=== PATIENT | female | born 1945 | race Caucasian/White ===

== ENCOUNTER 2022-06-06 08:59 | Inpatient (IN) | payer OTHER ==
[~2022-06-06] VITALS: Ht 165.1 cm; Wt 92.5 kg
[2022-06-06] VITALS (34 sets, daily range): BP systolic 88–171; BP diastolic 36–160
[2022-06-06] MEDS ORDERED: SODIUM CHLORIDE 0.9% 1000ML 1,000 ML IV STA ×3 (09:07→10:57)
[2022-06-06 10:15] LABS: INR 1.23; PARTIAL THROMBOPLASTIN TIME 23.4 seconds (23.8-35.5); PROTHROMBIN TIME 15.7 seconds (11.9-14.5)
[2022-06-06 10:20] LABS: BASOPHILS % 0.2 % (0.0-1.0); EOSINOPHILS # (AUTO) 0.1 (0.0-0.4); EOSINOPHILS % 2.5 % (0.0-6.0); LYMPHOCYTES % 21.7 % (18.0-39.1); MEAN CORPUSCULAR HEMOGLOBIN 33.7 pg (28-32); MEAN CORPUSCULAR HGB CONC 31.6 g/dL (31-35); MEAN CORPUSCULAR VOLUME 106.6 fL (81-99); MONOCYTES # (AUTO) 0.7 (0.2-0.8); MONOCYTES % 16.1 % (4.4-11.3); NEUTROPHILS # (AUTO) 2.4 (2.1-6.9); NEUTROPHILS % 53.6 % (38.7-80.0); RED BLOOD COUNT 1.81 x10e6/uL (3.6-5.1); RED CELL DISTRIBUTION WIDTH 19.2 % (11.7-14.4)
[2022-06-06 10:22] LABS: HEMATOCRIT 19.3 % (34.2-44.1); HEMOGLOBIN 6.1 g/dL (12.0-16.0); PLATELET COUNT 71 x10e3/uL (140-360)
[2022-06-06 10:27] LABS: ALBUMIN 2.2 g/dL (3.5-5.0); ALBUMIN/GLOBULIN RATIO 0.4 (0.8-2.0); CALCIUM 8.7 mg/dL (8.4-10.2); CREATININE, SERUM 1.75 mg/dL (0.57-1.11); MAGNESIUM 2.1 MG/DL (1.3-2.1)
[2022-06-06 10:58] LABS: CREATINE KINASE MB 0.9 ng/mL (0-5.0); THYROID STIMULATING HORMONE 0.33 uIU/mL (0.350-4.940)
[2022-06-06 10:59] LABS: CLARITY,URINE SL CLOUDY (CLEAR); COLOR,URINE YELLOW (YELLOW); LEUKOCYTE ESTERASE ,URINE NEGATIVE (NEGATIVE); NITRITE,URINE POSITIVE (NEGATIVE)
[2022-06-06 11:00] LABS: KETONES,URINE TRACE (NEGATIVE); PROTEIN,URINE DIPSTICK TRACE (NEGATIVE); URINE UROBILINOGEN 0.2 mg/dL (0.2 - 1)
[2022-06-06] MEDS ORDERED: Vancomycin IV 1 GM in SODIUM CHLORIDE 0.9% 250ML 250 ML IV ONE (11:00)
[2022-06-06 11:12] LABS: BACTERIA,URINE MANY /HPF; EPITHELIAL CELLS,URINE RARE /LPF; RBC,URINE 0-5 /HPF (0-5); WBC,URINE (MAN) 0-5 /HPF (0-5)
[2022-06-06] MEDS: SODIUM CHLORIDE 0.9% 1000ML 1,000 ML IV SCH ×2 (11:15→21:15)
[2022-06-06 12:04] LABS: BAND NEUTROPHILS % (MANUAL) 5 %; BLAST CELLS % MANUAL 10; LYMPHOCYTES % (MANUAL) 24 % (19-48); MONOCYTES % (MANUAL) 4 % (3.4-9.0); MYELOCYTES % (MANUAL) 1 % (0-0); NEUTROPHILS % (MANUAL) 53 % (40-74)
[2022-06-06 12:05] LABS: ANISOCYTOSIS SLIGHT; PLATELET ESTIMATE MODERATELY DECREASED; PLATELET MORPHOLOGY COMMENT NORMAL; RBC MORPHOLOGY COMMENT NORMAL
[2022-06-06] MEDS ORDERED: NOREPINEPHRINE 8 MG/D5W 250 ML 250 ML ONE (12:11)
[2022-06-06] MEDS ORDERED: DEXTROSE 50% SYRINGE 50 ML IV PRN (12:15)
[2022-06-06] MEDS: NOREPINEPHRINE 8 MG/D5W 250 ML 250 ML IV SCH (12:30)
[2022-06-06] MEDS ORDERED: SODIUM CHLORIDE 0.9% 250ML 250 ML ONE ×3 (12:52→21:09)
[2022-06-06] MEDS ORDERED: TRIAMCINOLONE A15 G1 TOP (14:15)
[2022-06-06] MEDS ORDERED: LEVOTHYROXINE50 MCG PO (14:15)
[2022-06-06] MEDS ORDERED: SIMETHICONE80 MG PO (14:15)
[2022-06-06] MEDS ORDERED: MULTIVITAMINS1 EAC6 PO (14:15)
[2022-06-06] MEDS ORDERED: ZINC-22050 MG PO (14:15)
[2022-06-06] MEDS ORDERED: TRADJENTA5 MG PO (14:15)
[2022-06-06] MEDS ORDERED: PEPCID20 MG PO (14:15)
[2022-06-06] MEDS ORDERED: LEVOTHYROXINE112 MCG PO (14:15)
[2022-06-06] MEDS ORDERED: VITAMIN C500 MG PO (14:15)
[2022-06-06] MEDS ORDERED: BENEPROTEIN1 EACH PO (14:15)
[2022-06-06] MEDS ORDERED: JARDIANCE10 MG PO (14:15)
[2022-06-06] MEDS ORDERED: MICONAZORB AF71 GM TOP (14:17)
[2022-06-06] MEDS: INSULIN REGULAR, HUMAN 100 UNIT/1 ML SQ SCH ×2 (16:30→22:21)
[2022-06-06] MEDS ORDERED: ACETAMINOPHEN 1000 MG/100 ML IV STA (19:50)
[2022-06-07] VITALS (76 sets, daily range): BP systolic 90–153; BP diastolic 36–130
[2022-06-07] MEDS: LACTATED RINGER'S 1,000 ML INJ SCH ×4 (00:28→20:39)
[2022-06-07] MEDS: NOREPINEPHRINE 8 MG/D5W 250 ML 250 ML IV SCH (00:52)
[2022-06-07] MEDS ORDERED: DEXTROSE 50% SYRINGE 50 ML IV PRN (06:00)
[2022-06-07 06:11] LABS: BASOPHILS % 0.4 % (0.0-1.0); EOSINOPHILS # (AUTO) 0.1 (0.0-0.4); EOSINOPHILS % 1.3 % (0.0-6.0); HEMATOCRIT 23.8 % (34.2-44.1); HEMOGLOBIN 7.8 g/dL (12.0-16.0); LYMPHOCYTES % 18.7 % (18.0-39.1); MEAN CORPUSCULAR HEMOGLOBIN 31.2 pg (28-32); MEAN CORPUSCULAR HGB CONC 32.8 g/dL (31-35); MEAN CORPUSCULAR VOLUME 95.2 fL (81-99); MONOCYTES # (AUTO) 0.5 (0.2-0.8); MONOCYTES % 8.8 % (4.4-11.3); NEUTROPHILS # (AUTO) 3.7 (2.1-6.9); PLATELET COUNT 56 x10e3/uL (140-360); RED CELL DISTRIBUTION WIDTH 18.9 % (11.7-14.4)
[2022-06-07 06:34] LABS: ALBUMIN 1.8 g/dL (3.5-5.0); ALBUMIN/GLOBULIN RATIO 0.4 (0.8-2.0); ALKALINE PHOSPHATASE 42 IU/L (40-150); ANION GAP 12.6 mmol/L (8-16); BLOOD UREA NITROGEN 25 mg/dL (7-26); BUN/CREATININE RATIO 16 (6-25); CARBON DIOXIDE 19 mmol/L (22-29); CHLORIDE 107 mmol/L (98-107); CREATININE, SERUM 1.55 mg/dL (0.57-1.11); GLUCOSE 243 mg/dL (74-118); POTASSIUM 3.6 mmol/L (3.5-5.1); SODIUM 135 mmol/L (136-145)
[2022-06-07 06:35] LABS: ALANINE AMINOTRANSFERASE < 6 IU/L (0-55)
[2022-06-07 06:45] LABS: CREATINE KINASE MB 1.3 ng/mL (0-5.0)
[2022-06-07 07:20] LABS: BLAST CELLS % MANUAL 5; EOSINOPHILS % (MANUAL) 2 % (0-7); LYMPHOCYTES % (MANUAL) 17 % (19-48); METAMYELOCYTES % (MANUAL) 1 % (0-0); MONOCYTES % (MANUAL) 2 % (3.4-9.0); MYELOCYTES % (MANUAL) 2 % (0-0); NEUTROPHILS % (MANUAL) 71 % (40-74)
[2022-06-07 07:22] LABS: ANISOCYTOSIS MODERATE; OVALOCYTES FEW; PLATELET ESTIMATE MODERATELY DECREASED; PLATELET MORPHOLOGY COMMENT NORMAL; RBC MORPHOLOGY COMMENT ABNORMAL
[2022-06-07] MEDS: INSULIN REGULAR, HUMAN 100 UNIT/1 ML SQ SCH ×4 (07:48→21:43)
[2022-06-07] MEDS: MULTIVITAMINS/MINERALS TAB PO SCH (08:08)
[2022-06-07] MEDS: LEVOTHYROXINE SODIUM 112 MCG TAB PO SCH (08:08)
[2022-06-07] MEDS ORDERED: DIATRIZOATE MEGL/DIATRIZOA SOD 30 ML BTL PO ONE (13:00)
[2022-06-07] MEDS ORDERED: FUROSEMIDE INJ 10 MG/ML 4 ML VIAL IV ONE (18:00)
[2022-06-08] VITALS (54 sets, daily range): BP systolic 83–140; BP diastolic 35–97
[2022-06-08] MEDS: NOREPINEPHRINE 8 MG/D5W 250 ML 250 ML IV SCH (02:52)
[2022-06-08] MEDS: LACTATED RINGER'S 1,000 ML INJ SCH ×2 (05:39→16:47)
[2022-06-08 06:03] LABS: ALBUMIN 1.6 g/dL (3.5-5.0); ALBUMIN/GLOBULIN RATIO 0.4 (0.8-2.0); ALKALINE PHOSPHATASE 39 IU/L (40-150); ANION GAP 11.2 mmol/L (8-16); BLOOD UREA NITROGEN 20 mg/dL (7-26); BUN/CREATININE RATIO 16 (6-25); CALCIUM 7.6 mg/dL (8.4-10.2); CARBON DIOXIDE 22 mmol/L (22-29); CHLORIDE 105 mmol/L (98-107); CREATININE, SERUM 1.24 mg/dL (0.57-1.11); GLUCOSE 172 mg/dL (74-118); POTASSIUM 3.2 mmol/L (3.5-5.1); SODIUM 135 mmol/L (136-145)
[2022-06-08 06:06] LABS: ALANINE AMINOTRANSFERASE < 6 IU/L (0-55)
[2022-06-08 06:22] LABS: BASOPHILS % 0.4 % (0.0-1.0); EOSINOPHILS # (AUTO) 0.3 (0.0-0.4); EOSINOPHILS % 12.9 % (0.0-6.0); HEMOGLOBIN 7.1 g/dL (12.0-16.0); LYMPHOCYTES # (AUTO) 0.8 (1.0-3.2); LYMPHOCYTES % 30.5 % (18.0-39.1); MEAN CORPUSCULAR HEMOGLOBIN 31.4 pg (28-32); MEAN CORPUSCULAR VOLUME 95.1 fL (81-99); MONOCYTES # (AUTO) 0.4 (0.2-0.8); MONOCYTES % 14.1 % (4.4-11.3); NEUTROPHILS % 39.4 % (38.7-80.0); RED BLOOD COUNT 2.26 x10e6/uL (3.6-5.1)
[2022-06-08 06:28] LABS: PLATELET COUNT 31 x10e3/uL (140-360)
[2022-06-08 06:29] LABS: HEMATOCRIT 21.5 % (34.2-44.1)
[2022-06-08] MEDS: INSULIN REGULAR, HUMAN 100 UNIT/1 ML SQ SCH ×4 (07:30→21:30)
[2022-06-08 09:06] LABS: EOSINOPHILS % (MANUAL) 12 % (0-7); LYMPHOCYTES % (MANUAL) 38 % (19-48); NEUTROPHILS % (MANUAL) 48 % (40-74); NUCLEATED RED BLOOD CELLS 1
[2022-06-08 09:07] LABS: PLATELET ESTIMATE MARKEDLY DECREASED
[2022-06-08 09:08] LABS: ELLIPTOCYTE, RBC SLIGHT
[2022-06-08 09:09] LABS: ANISOCYTOSIS MODERATE; OVALOCYTES FEW
[2022-06-08 09:10] LABS: PLATELET MORPHOLOGY COMMENT NORMAL; RBC MORPHOLOGY COMMENT ABNORMAL
[2022-06-08 09:11] LABS: BLAST CELLS % MANUAL 1; PROMYELOCYTES % (MANUAL) 1 % (0-0)
[2022-06-08] MEDS: MULTIVITAMINS/MINERALS TAB PO SCH (09:50)
[2022-06-08] MEDS: LEVOTHYROXINE SODIUM 112 MCG TAB PO SCH (09:50)
[2022-06-08] MEDS ORDERED: POTASSIUM CHLORIDE 20MEQ/100ML 200 ML IV ONE (12:00)
[2022-06-08] MEDS ORDERED: MAGNESIUM SULFATE 2GM/50ML 100 ML IV ONE (13:00)
[2022-06-08] MEDS ORDERED: MAGNESIUM SULFATE 2GM/50ML 50 ML IV ONE (16:54)
[2022-06-09] VITALS (83 sets, daily range): BP systolic 58–158; BP diastolic 13–123
[2022-06-09 06:26] LABS: EOSINOPHILS # (AUTO) 0.2 (0.0-0.4); EOSINOPHILS % 13.8 % (0.0-6.0); LYMPHOCYTES # (AUTO) 0.8 (1.0-3.2); LYMPHOCYTES % 44.8 % (18.0-39.1); MEAN CORPUSCULAR HEMOGLOBIN 31.2 pg (28-32); MEAN CORPUSCULAR HGB CONC 32.4 g/dL (31-35); MEAN CORPUSCULAR VOLUME 96.4 fL (81-99); MONOCYTES # (AUTO) 0.2 (0.2-0.8); MONOCYTES % 13.8 % (4.4-11.3); NEUTROPHILS # (AUTO) 0.5 (2.1-6.9); NEUTROPHILS % 26.5 % (38.7-80.0); RED BLOOD COUNT 2.21 x10e6/uL (3.6-5.1); RED CELL DISTRIBUTION WIDTH 18.2 % (11.7-14.4)
[2022-06-09 06:39] LABS: ALBUMIN 1.5 g/dL (3.5-5.0); ALBUMIN/GLOBULIN RATIO 0.3 (0.8-2.0); ALKALINE PHOSPHATASE 38 IU/L (40-150); ANION GAP 11.9 mmol/L (8-16); BLOOD UREA NITROGEN 19 mg/dL (7-26); BUN/CREATININE RATIO 14 (6-25); CALCIUM 7.4 mg/dL (8.4-10.2); CARBON DIOXIDE 21 mmol/L (22-29); CHLORIDE 104 mmol/L (98-107); CREATININE, SERUM 1.37 mg/dL (0.57-1.11); GLUCOSE 124 mg/dL (74-118); POTASSIUM 3.9 mmol/L (3.5-5.1); SODIUM 133 mmol/L (136-145)
[2022-06-09 06:42] LABS: HEMATOCRIT 21.3 % (34.2-44.1); HEMOGLOBIN 6.9 g/dL (12.0-16.0); PLATELET COUNT 20 x10e3/uL (140-360)
[2022-06-09 06:43] LABS: ALANINE AMINOTRANSFERASE < 6 IU/L (0-55)
[2022-06-09 07:24] LABS: ELLIPTOCYTE, RBC SLIGHT; HYPOCHROMASIA SLIGHT; PLATELET ESTIMATE MARKEDLY DECREASED; PLATELET MORPHOLOGY COMMENT NORMAL; RBC MORPHOLOGY COMMENT ABNORMAL
[2022-06-09] MEDS: MULTIVITAMINS/MINERALS TAB PO SCH (08:25)
[2022-06-09] MEDS: LEVOTHYROXINE SODIUM 112 MCG TAB PO SCH (08:25)
[2022-06-09] MEDS: INSULIN REGULAR, HUMAN 100 UNIT/1 ML SQ SCH ×4 (08:28→21:00)
[2022-06-09] MEDS ORDERED: SODIUM CHLORIDE 0.9% 250ML 250 ML IV ONE (10:30)
[2022-06-09] MEDS: LACTATED RINGER'S 1,000 ML INJ SCH ×2 (11:53→23:22)
[2022-06-09] MEDS ORDERED: MAGNESIUM SULFATE 2GM/50ML 50 ML IV ONE (12:45)
[2022-06-09] MEDS ORDERED: FUROSEMIDE INJ 10 MG/ML 4 ML VIAL IV ONE (12:45)
[2022-06-10] VITALS (36 sets, daily range): BP systolic 90–143; BP diastolic 34–89
[2022-06-10 06:19] LABS: EOSINOPHILS # (AUTO) 0.2 (0.0-0.4); EOSINOPHILS % 14.6 % (0.0-6.0); HEMATOCRIT 29.4 % (34.2-44.1); HEMOGLOBIN 9.6 g/dL (12.0-16.0); LYMPHOCYTES % 58.5 % (18.0-39.1); MEAN CORPUSCULAR HEMOGLOBIN 30.1 pg (28-32); MEAN CORPUSCULAR HGB CONC 32.7 g/dL (31-35); MEAN CORPUSCULAR VOLUME 92.2 fL (81-99); MONOCYTES # (AUTO) 0.1 (0.2-0.8); MONOCYTES % 5.5 % (4.4-11.3); NEUTROPHILS # (AUTO) 0.3 (2.1-6.9); NEUTROPHILS % 18.4 % (38.7-80.0); PLATELET COUNT 54 x10e3/uL (140-360); RED BLOOD COUNT 3.19 x10e6/uL (3.6-5.1); RED CELL DISTRIBUTION WIDTH 17.7 % (11.7-14.4)
[2022-06-10 06:37] LABS: ANION GAP 10.4 mmol/L (8-16); CALCIUM 7.5 mg/dL (8.4-10.2); CREATININE, SERUM 1.21 mg/dL (0.57-1.11); POTASSIUM 3.4 mmol/L (3.5-5.1)
[2022-06-10 07:27] LABS: BAND NEUTROPHILS % (MANUAL) 1 %; BLAST CELLS % MANUAL 3; EOSINOPHILS % (MANUAL) 14 % (0-7); LYMPHOCYTES % (MANUAL) 61 % (19-48); NEUTROPHILS % (MANUAL) 21 % (40-74); PLATELET ESTIMATE MODERATELY DECREASED
[2022-06-10 07:28] LABS: ANISOCYTOSIS SLIGHT; HYPOCHROMASIA SLIGHT
[2022-06-10] MEDS: MULTIVITAMINS/MINERALS TAB PO SCH (08:06)
[2022-06-10] MEDS: LEVOTHYROXINE SODIUM 112 MCG TAB PO SCH (08:07)
[2022-06-10] MEDS: INSULIN REGULAR, HUMAN 100 UNIT/1 ML SQ SCH ×4 (08:09→20:21)
[2022-06-10] MEDS: LACTATED RINGER'S 1,000 ML INJ SCH ×3 (09:08→21:11)
[2022-06-10] MEDS ORDERED: FILGRASTIM-AAFI 300 MCG/0.5 ML SYRINGE SQ ONE (18:00)
[2022-06-11] VITALS (8 sets, daily range): BP systolic 112–147; BP diastolic 46–75
[2022-06-11] MEDS: INSULIN REGULAR, HUMAN 100 UNIT/1 ML SQ SCH ×4 (07:30→20:58)
[2022-06-11] MEDS: LEVOTHYROXINE SODIUM 112 MCG TAB PO SCH (07:32)
[2022-06-11 07:56] LABS: EOSINOPHILS % 0.9 % (0.0-6.0); HEMATOCRIT 28.6 % (34.2-44.1); HEMOGLOBIN 9.3 g/dL (12.0-16.0); LYMPHOCYTES # (AUTO) 1.1 (1.0-3.2); LYMPHOCYTES % 45.1 % (18.0-39.1); MEAN CORPUSCULAR HEMOGLOBIN 30.2 pg (28-32); MEAN CORPUSCULAR HGB CONC 32.5 g/dL (31-35); MEAN CORPUSCULAR VOLUME 92.9 fL (81-99); MONOCYTES # (AUTO) 0.2 (0.2-0.8); MONOCYTES % 7.7 % (4.4-11.3); NEUTROPHILS # (AUTO) 1.1 (2.1-6.9); NEUTROPHILS % 45.4 % (38.7-80.0); RED BLOOD COUNT 3.08 x10e6/uL (3.6-5.1); RED CELL DISTRIBUTION WIDTH 17.7 % (11.7-14.4)
[2022-06-11 08:12] LABS: PLATELET COUNT 41 x10e3/uL (140-360)
[2022-06-11] MEDS: LACTATED RINGER'S 1,000 ML INJ SCH ×2 (08:48→16:57)
[2022-06-11] MEDS: MULTIVITAMINS/MINERALS TAB PO SCH ×2 (08:49→09:00)
[2022-06-11 10:47] LABS: EOSINOPHILS % (MANUAL) 20 % (0-7); LYMPHOCYTES % (MANUAL) 48 % (19-48); MONOCYTES % (MANUAL) 6 % (3.4-9.0); NEUTROPHILS % (MANUAL) 22 % (40-74); PLATELET ESTIMATE MARKEDLY DECREASED; PLATELET MORPHOLOGY COMMENT NORMAL; RBC MORPHOLOGY COMMENT NORMAL
[2022-06-11] MEDS ORDERED: POTASSIUM CHLORIDE 20 MEQ TAB CR PO ONE (11:45)
[2022-06-11 18:13] LABS: BASOPHILS % 0.4 % (0.0-1.0); EOSINOPHILS % 0.8 % (0.0-6.0); HEMATOCRIT 29.5 % (34.2-44.1); HEMOGLOBIN 9.5 g/dL (12.0-16.0); LYMPHOCYTES # (AUTO) 1.3 (1.0-3.2); LYMPHOCYTES % 51.4 % (18.0-39.1); MEAN CORPUSCULAR HEMOGLOBIN 30.3 pg (28-32); MEAN CORPUSCULAR HGB CONC 32.2 g/dL (31-35); MEAN CORPUSCULAR VOLUME 93.9 fL (81-99); MONOCYTES # (AUTO) 0.2 (0.2-0.8); MONOCYTES % 7.7 % (4.4-11.3); NEUTROPHILS % 38.9 % (38.7-80.0); RED BLOOD COUNT 3.14 x10e6/uL (3.6-5.1); RED CELL DISTRIBUTION WIDTH 17.3 % (11.7-14.4)
[2022-06-11 18:18] LABS: PLATELET COUNT 37 x10e3/uL (140-360)
[2022-06-12] VITALS (8 sets, daily range): BP systolic 115–135; BP diastolic 54–80
[2022-06-12] MEDS: LACTATED RINGER'S 1,000 ML INJ SCH ×2 (04:18→17:11)
[2022-06-12] MEDS: LEVOTHYROXINE SODIUM 112 MCG TAB PO SCH (06:29)
[2022-06-12 06:58] LABS: EOSINOPHILS # (AUTO) 0.3 (0.0-0.4); EOSINOPHILS % 15.7 % (0.0-6.0); HEMATOCRIT 28.1 % (34.2-44.1); LYMPHOCYTES # (AUTO) 1.1 (1.0-3.2); LYMPHOCYTES % 57.6 % (18.0-39.1); MEAN CORPUSCULAR HEMOGLOBIN 29.9 pg (28-32); MEAN CORPUSCULAR VOLUME 93.4 fL (81-99); MONOCYTES # (AUTO) 0.2 (0.2-0.8); MONOCYTES % 7.9 % (4.4-11.3); NEUTROPHILS # (AUTO) 0.4 (2.1-6.9); NEUTROPHILS % 18.3 % (38.7-80.0); RED BLOOD COUNT 3.01 x10e6/uL (3.6-5.1); RED CELL DISTRIBUTION WIDTH 17.2 % (11.7-14.4)
[2022-06-12 07:01] LABS: PLATELET COUNT 36 x10e3/uL (140-360)
[2022-06-12 07:08] LABS: CALCIUM 7.6 mg/dL (8.4-10.2); CREATININE, SERUM 1.13 mg/dL (0.57-1.11)
[2022-06-12 07:40] LABS: BLAST CELLS % MANUAL 5; EOSINOPHILS % (MANUAL) 25 % (0-7); LYMPHOCYTES % (MANUAL) 52 % (19-48); NEUTROPHILS % (MANUAL) 18 % (40-74)
[2022-06-12 07:41] LABS: ANISOCYTOSIS SLIGHT; HYPOCHROMASIA SLIGHT; PLATELET ESTIMATE MARKEDLY DECREASED; PLATELET MORPHOLOGY COMMENT NORMAL; RBC MORPHOLOGY COMMENT ABNORMAL
[2022-06-12] MEDS: INSULIN REGULAR, HUMAN 100 UNIT/1 ML SQ SCH ×4 (08:00→21:45)
[2022-06-12] MEDS ORDERED: PIPERACILLIN/TAZOBACTAM SOD 2.25 GM VIAL ONE (08:15)
[2022-06-12] MEDS ORDERED: FILGRASTIM 300 MCG/ML VIAL SC SCH (09:30)
[2022-06-12] MEDS: MULTIVITAMINS/MINERALS TAB PO SCH (09:35)
[2022-06-13] VITALS (7 sets, daily range): BP systolic 123–142; BP diastolic 57–81
[2022-06-13] MEDS: LEVOTHYROXINE SODIUM 112 MCG TAB PO SCH (06:06)
[2022-06-13 06:55] LABS: BASOPHILS % 0.2 % (0.0-1.0); EOSINOPHILS # (AUTO) 0.4 (0.0-0.4); HEMATOCRIT 29.9 % (34.2-44.1); HEMOGLOBIN 9.5 g/dL (12.0-16.0); LYMPHOCYTES # (AUTO) 1.4 (1.0-3.2); LYMPHOCYTES % 22.5 % (18.0-39.1); MEAN CORPUSCULAR HEMOGLOBIN 30.3 pg (28-32); MEAN CORPUSCULAR HGB CONC 31.8 g/dL (31-35); MEAN CORPUSCULAR VOLUME 95.2 fL (81-99); MONOCYTES # (AUTO) 0.2 (0.2-0.8); NEUTROPHILS % 66.2 % (38.7-80.0); RED BLOOD COUNT 3.14 x10e6/uL (3.6-5.1); RED CELL DISTRIBUTION WIDTH 17.2 % (11.7-14.4)
[2022-06-13 06:56] LABS: PLATELET COUNT 30 x10e3/uL (140-360)
[2022-06-13] MEDS: INSULIN REGULAR, HUMAN 100 UNIT/1 ML SQ SCH ×4 (07:30→21:40)
[2022-06-13] MEDS ORDERED: SODIUM CHLORIDE 0.9% 250ML 250 ML ONE (07:33)
[2022-06-13 08:11] LABS: ANISOCYTOSIS SLIGHT; BAND NEUTROPHILS % (MANUAL) 8 %; BLAST CELLS % MANUAL 4; EOSINOPHILS % (MANUAL) 5 % (0-7); LYMPHOCYTES % (MANUAL) 21 % (19-48); MONOCYTES % (MANUAL) 2 % (3.4-9.0); NEUTROPHILS % (MANUAL) 60 % (40-74); PLATELET ESTIMATE MARKEDLY DECREASED; PLATELET MORPHOLOGY COMMENT NORMAL
[2022-06-13 08:14] LABS: OVALOCYTES FEW
[2022-06-13 08:15] LABS: HYPOCHROMASIA SLIGHT; RBC MORPHOLOGY COMMENT ABNORMAL
[2022-06-13] MEDS: MULTIVITAMINS/MINERALS TAB PO SCH (09:00)
[2022-06-14] VITALS: BP 119/51
[2022-06-14 04:00] VITALS: BP 129/67
[2022-06-14] MEDS: LEVOTHYROXINE SODIUM 112 MCG TAB PO SCH (05:24)
[2022-06-14 06:59] LABS: BASOPHILS % 0.3 % (0.0-1.0); EOSINOPHILS # (AUTO) 0.2 (0.0-0.4); EOSINOPHILS % 6.1 % (0.0-6.0); HEMATOCRIT 27.3 % (34.2-44.1); HEMOGLOBIN 8.8 g/dL (12.0-16.0); LYMPHOCYTES # (AUTO) 1.6 (1.0-3.2); LYMPHOCYTES % 39.3 % (18.0-39.1); MEAN CORPUSCULAR HEMOGLOBIN 30.1 pg (28-32); MEAN CORPUSCULAR HGB CONC 32.2 g/dL (31-35); MEAN CORPUSCULAR VOLUME 93.5 fL (81-99); MONOCYTES # (AUTO) 0.3 (0.2-0.8); MONOCYTES % 6.9 % (4.4-11.3); NEUTROPHILS # (AUTO) 1.9 (2.1-6.9); NEUTROPHILS % 46.9 % (38.7-80.0); RED BLOOD COUNT 2.92 x10e6/uL (3.6-5.1); RED CELL DISTRIBUTION WIDTH 16.9 % (11.7-14.4)
[2022-06-14 07:18] LABS: PLATELET COUNT 29 x10e3/uL (140-360)
[2022-06-14] MEDS: INSULIN REGULAR, HUMAN 100 UNIT/1 ML SQ SCH ×2 (07:30→12:17)
[2022-06-14 07:50] LABS: BAND NEUTROPHILS % (MANUAL) 2 %; BLAST CELLS % MANUAL 2; EOSINOPHILS % (MANUAL) 8 % (0-7); LYMPHOCYTES % (MANUAL) 37 % (19-48); NEUTROPHILS % (MANUAL) 51 % (40-74)
[2022-06-14 07:51] LABS: ANISOCYTOSIS SLIGHT; HYPOCHROMASIA SLIGHT; OVALOCYTES FEW; PLATELET ESTIMATE MARKEDLY DECREASED; PLATELET MORPHOLOGY COMMENT NORMAL; RBC MORPHOLOGY COMMENT ABNORMAL
[2022-06-14 08:24] VITALS: BP 127/59
[2022-06-14 08:49] VITALS: BP 127/59
[2022-06-14] MEDS: MULTIVITAMINS/MINERALS TAB PO SCH (08:52)
[2022-06-14 12:07] VITALS: BP 150/57
== END 2022-06-14 14:56 | DRG 871 ==
LOC: ER 09:06 → ERHOLD 11:12 → ICU 13:55 → MED/SURG3 06-10 22:10
PROVIDERS: ADMIT Internal Medicine; ATTEND Internal Medicine
PROC: 3E04329 Introduction of Other Anti-infective into Central Vein, Percutaneous Approach (ICD-10-PCS; 2022-06-06)
PROC: 02HV33Z Insertion of Infusion Device into Superior Vena Cava, Percutaneous Approach (ICD-10-PCS; 2022-06-06)
PROC: 30243N1 Transfusion of Nonautologous Red Blood Cells into Central Vein, Percutaneous Approach (ICD-10-PCS; 2022-06-06)
PROC: 05HY33Z Insertion of Infusion Device into Upper Vein, Percutaneous Approach (ICD-10-PCS; principal; 2022-06-10)
PROC: 30243R1 Transfusion of Nonautologous Platelets into Central Vein, Percutaneous Approach (ICD-10-PCS; 2022-06-11)
DX: A41.50 Gram-negative sepsis, unspecified (principal); G93.41 Metabolic encephalopathy; J18.9 Pneumonia, unspecified organism; J69.0 Pneumonitis due to inhalation of food and vomit; C92.00 Acute myeloblastic leukemia, not having achieved remission; D61.818 Other pancytopenia; N39.0 Urinary tract infection, site not specified; E87.20 Acidosis, unspecified; N17.9 Acute kidney failure, unspecified; R65.20 Severe sepsis without septic shock; D46.9 Myelodysplastic syndrome, unspecified; B96.1 Klebsiella pneumoniae [K. pneumoniae] as the cause of diseases classified elsewhere; K74.60 Unspecified cirrhosis of liver; Z86.711 Personal history of pulmonary embolism; Z79.01 Long term (current) use of anticoagulants; D69.6 Thrombocytopenia, unspecified; E88.09 Other disorders of plasma-protein metabolism, not elsewhere classified; R77.1 Abnormality of globulin; I12.9 Hypertensive chronic kidney disease with stage 1 through stage 4 chronic kidney disease, or unspecified chronic kidney disease; E11.22 Type 2 diabetes mellitus with diabetic chronic kidney disease; N18.30 Chronic kidney disease, stage 3 unspecified; Z79.4 Long term (current) use of insulin; K80.20 Calculus of gallbladder without cholecystitis without obstruction; E11.65 Type 2 diabetes mellitus with hyperglycemia; F06.8 Other specified mental disorders due to known physiological condition; E87.6 Hypokalemia; Z74.2 Need for assistance at home and no other household member able to render care; Z20.822 Contact with and (suspected) exposure to COVID-19
CPT/HCPCS: 36415; 36569; 71045; 74176; 74230; 76770; 80048; 80053; 81001; 82270; 82550; 82553; 82607; 82746; 82784; 82948; 83010; 83605; 83735; 83880; 84443; 84484; 85025; 85610; 85730; 86850; 86900; 86920; 87040; 87086; 87186; 93005; 93306; 94799; 96372; 99252; 99285; J0696; J1442; J1817; J1940; J2543; J3370; J3475; J3480; J7030; J7050; J7121; P9016; P9034; Q9963